=== PATIENT | female | born 1955 | race Hispanic/Latino ===

== ENCOUNTER 2018-02-20 06:52 | Day surgery (SDC) | payer MEDICARE, MEDICAID ==
[2018-02-20 07:36] VITALS: BMI 31.6
[2018-02-20] MEDS ORDERED: Simethicone 40 mg/0.6 ml Liquid (30 ml) ONE (08:06)
[2018-02-20] MEDS ORDERED: Propofol 10 mg/ml Inj (20 ML) ONE ×2 (08:50→09:39)
[2018-02-20] MEDS ORDERED: Sodium Chloride 0.9% 1,000 ML IV SCH (10:00)
[2018-02-20 10:33] VITALS: BP 131/74; PULSE 61; RESP 16; TEMP 98; O2SAT 97
== END 2018-02-20 11:31 | disposition home or self-care (01) ==
LOC: ENDO 06:52
PROVIDERS: ATTEND Internal Medicine Gastroenterology
DX: K63.5 Polyp of colon (principal); D13.0 Benign neoplasm of esophagus; K31.7 Polyp of stomach and duodenum; K57.30 Diverticulosis of large intestine without perforation or abscess without bleeding; K21.9 Gastro-esophageal reflux disease without esophagitis; K64.1 Second degree hemorrhoids; K62.5 Hemorrhage of anus and rectum

== ENCOUNTER 2018-11-11 08:51 | Outpatient (CLI) | payer MEDICARE, MEDICAID | END 2018-11-11 08:52 | disposition home or self-care (01) | LOC: RAD 08:51 | DX: Z12.31 Encounter for screening mammogram for malignant neoplasm of breast (principal) ==